=== PATIENT | female | born 1980 | race Two or more races ===

== ENCOUNTER 2024-07-24 09:18 | Emergency (ER) | payer MEDICAID, SELFPAY ==
[2024-07-24 09:34] VITALS: BP 128/83; PULSE 72; RESP 18; TEMP 36.9; O2SAT 100; BMI 18.6
--- NOTE | 2024-07-24 09:34 | EDNOTE_ITS ---
ED Eye Problem RME/HPI General Chief complaint: Eye Problems Stated complaint: Left eye pain X 1 month Time Seen by Provider: 07/24/24 09:24 Source: patient Arrival date/time: 07/24/24 09:18 44-year-old female with no known medical history presents to the emergency room with a chief complaint of left eye irritation x 1 month. Mode of arrival: ambulatory Limitations: no limitations Related Data Home Medications ?Medication ?Instructions ?Recorded ?Confirmed cetirizine 10 mg tablet 100 mg PO DAILY PRN Allergic 11/28/22 11/28/22 Symptoms Previous Rx's ?Medication ?Instructions ?Recorded acetaminophen 300 mg-codeine 30 mg 1 tab PO Q8H PRN pa in #14 tabs 11/29/22 tablet acetaminophen 650 mg 650 mg PO Q12H PRN fever or pain 11/29/22 tablet,extended release #14 tabs cephalexin 500 mg capsule 500 mg PO Q12H #14 caps 11/16 10/08 ibuprofen 800 mg tablet 800 mg PO Q8H PRN pain #20 t abs 11/29/22 metronidazole 500 mg tablet 500 mg PO Q12H #14 tabs Allergies Allergy/AdvReac Type Severity Reaction Status Date / Time No Known Allergies Allergy Verified 11/29/22 06:39 Review of Systems Review of Systems Systems Reviewed: All systems reviewed, normal except as documented Constitutional Constitutional: Reports system reviewed and no additional complaints, except as documented, Denies fatigue, Denies fever(s), Denies headache(s) and Denies weakness Eyes Eyes: Reports system reviewed and no additional complaints, except as documented, Denies blind spots, Denies blurry vision, Denies change in vision, Denies decreased night vision, Denies diplopia, Denies eye discharge, Denies dry eyes, Denies exophthalmos, Denies floaters, Reports irritation, Denies itchy eyes, Denies loss of peripheral vision, Denies loss of vision, Denies other visual disturbances, Denies eye pain, Denies photophobia, Denies requires corrective lenses, Denies seeing flashes, Denies spots in vision and Denies t unnel vision ENT Ears, Nose, Mouth, and Throat: Reports system reviewed and no additional complaints, except as documented, Denies otalgia, Denies headache(s), Denies nasal congestion, Denies throat swelling and Denies vertigo Cardiovascular Cardiovascular: Reports system reviewed and no additional complaints, except as documented, Denies chest pain, Denies dyspnea and Denies dyspnea on exertion Respiratory Respiratory: Reports system reviewed and no additional complaints, except as documented, Denies chest congestion, Denies cough, Denies dyspnea, Denies dyspnea on exertion and Denies wheezing Gastrointestinal Gastrointestinal: Reports system reviewed and no additional complaints, except as documented, Denies abdominal pain, Denies cramping, Denies nausea and Denies vomiting Genitourinary Genitourinary: Reports system reviewed and no additional complaints, except as documented Musculoskeletal Musculoskeletal: Reports system reviewed and no additional complaints, except as documented and Denies back pain Integumentary/Breasts Skin/Breast: Reports system reviewed and no additional complaints, except as documented and Denies wounds Neurologic Neurologic: Reports system reviewed and no additional complaints, except as documented, Denies confusion, Denies headache(s), Denies lack of coordination, Denies loss of vision, Denies vertigo and Denies weakness Psychiatric Psychiatric: Reports system reviewed and no additional complaints, except as documented, Denies anxiety, Denies confusion, Denies depression, Denies paranoia, Denies suicidal ideation and Denies tactile hallucinations Endocrine Endocrine: Reports system reviewed and no additional complaints, except as documented and Denies fatigue Hematologic/Lymphatic Hematologic/Lymphatic: Reports system reviewed and no additional complaints, except as documented and Denies lymphadenopathy Allergic/Immunologic Allergic/Immunologic: Reports system reviewed and no additional complaints, except as documented, Denies itchy eyes, Denies throat swelling, Denies urticaria and Denies wheezing ED Exam General Limitations: Present no limitations General appearance: Present alert and in no apparent distress Head Head exam: Present atraumatic Eye Eye exam: Present normal appearance, PERRL and EOMI; Absent scleral icterus, conjunctival injection, nystagmus, miosis, mydriasis, periorbital swelling or periorbital tenderness Expanded Eye Exam Eyelids: bilateral: normal inspection Pupils: Bilateral: regular, round and reactive ENT ENT exam: Present normal exam, normal oropharynx and mucous membranes moist Neck Neck exam: Present normal inspection, full ROM and trachea midline Chest Chest inspection: Present normal inspection and symmetric chest wall rise Respiratory Respiratory exam: Present normal lung sounds bilaterally Cardiovascular Cardiovascular exam: Present regular rate, normal rhythm and normal heart sounds Abdominal Exam Abdominal exam: Present soft and normal bowel sounds Extremities Exam Extremities exam: Present normal inspection and full ROM Back Exam Back exam: Present normal inspection and full ROM Neurological Exam Neurological exam: Present alert, oriented X3 and CN II-XII intact Psychiatric Psychiatric exam: Present normal affect and normal mood Skin Skin exam: Present warm, dry, intact and normal color Course Quality Measures none Orders Category Date Time Status ED Eye Irrigation ONCE Care 07/24/24 09:34 Completed Visual Acuity X1 Care 07/24/24 09:34 Completed Childress Lamp to Bedside X1 Care 07/24/24 09:34 Completed Fluorescein Sodium [[id number]] Med 07/24/24 09:34 Discontinued 1 mg LEFT EYE X1 ONE TETRACAINE Op Sharona 0.5% [Pontocaine Op Sharona 0.5%] Med 07/24/24 09:34 Discontinued 1 drop LEFT EYE X1 ONE Vital Signs Vital signs: Vital Signs Temperature 98.5 F 07/24/24 09:34 Pulse Rate 72 07/24/24 09:34 Respiratory Rate 18 07/24/24 09:34 Blood Pressure 128/83 07/24/24 09:34 Pulse Oximetry (%) 100 07/24/24 09:34 Oxygen Delivery Method Room Air 07/24/24 09:34 O2 saturation 100% within normal limits Eye MDM Narrative MDM Narrative:: 44-year-old female with no known medical history presents to the emergency room with a chief complaint of left eye irritation x 1 month. Patient is hemodynamically stable and in no apparent distress Physical examination shows pupils are PERRLA EOMs are intact there is no nystagmus or myosis. Patient denies any double vision spots in her vision blurry vision. Patient states she has had left eye irritation x 1 month. A once lamp examination was set up but patient refused stating that she does not believe there is anything in her eye and she just wanted somebody to take a s econd look at it. Patient was discharged and educated to follow-up with her primary care provider and if symptoms continue a referral to an security system sales consultant. Patient data External records reviewed:: [facility] [place] previous records Clinical information provided by:: patient Social determinants that could affect healthcare access:: none Patient has the following chronic illnesses:: No chronic illness How is presenting disease/condition affected by chronic disease/condition?: no chronic disease Evaluation data The following diagnostics were reviewed and interpreted by me:: lab results and radiology exam(s) Lab and/or radiology exams considered but not ordered:: Labs and radiology exams considered and ordered Interpretation Summary: N/A Medications / Prescriptions Medications or Prescriptions considered but not ordered:: No medication given Medication administrations:: Medication Administration History Discontinued Medications Fluorescein Sodium (Fluorescein Sod 1 Mg Strp) 1 mg LEFT EYE X1 ONE Stop: 07/24/24 09:35 Last Admin: 07/24/24 10:03 Dose: 1 mg Documented By: TROY Tetracaine HCl (Tetracaine Pf Op Sharona 0.5% 4 Ml Drpette) 1 drop LEFT EYE X1 ONE Stop: 07/24/24 09:35 Last Admin: 07/24/24 10:03 Dose: 1 drop Documented By: TROY No medication given Consultations Consultation(s) initiated? (list below): No Diagnosis Eye Problem Differential Diagnosis: corneal abrasion, conjunctivitis, acute iritis, corneal ulcer and other (Eye irritation) Most likely diagnosis given after review of the tests above:: Eye irritation Admission Indicated Admission indicated?: not indicated Admission Request Was there a request for admission?: No Disposition Plan Disposition Plan: Discharge Discharge Attestation Discharge Attestation: The patient and all family members were given an opportunity to ask questions and understood the discharge instructions. Discharge instructions specifically effects, indications for sooner follow up or return to the emergency department, and the expected course of current diagnosis. Patient condition: Stable Discharge Plan Plan Patient Disposition: HOME (Self Care) Disposition Comment: Stable Prescriptions/Referrals Prescriptions/Med Rec: No Action cetirizine 10 mg tablet 100 mg PO DAILY PRN (Reason: Allergic Symptoms) acetaminophen 650 mg tablet extended release 650 mg PO Q12H PRN (Reason: fever or pain) Qty: 14 0RF ibuprofen 800 mg tablet 800 mg PO Q8H PRN (Reason: pain) Qty: 20 0RF acetaminophen-codeine 300-30 mg tablet 1 tab PO Q8H PRN (Reason: pain) Qty: 14 0RF metronidazole 500 mg tablet 500 mg PO Q12H Qty: 14 0RF cephalexin 500 mg capsule 500 mg PO Q12H Qty: 14 0RF Problem List Clinical Impression: Eye irritation Patient/Caregiver Discharge Instructions Education Materials: How the Eye Works Additional Instructions: Lennox un seguimiento con day proveedor de atenci?n primaria en las pr?ximas 24 a 4 8 horas. Si fidelia s?ntomas contin?an, necesitar? luzma derivaci?n a un oftalm?logo. Ante cualquier evidencia de empeoramiento de los signos o s?ntomas, regrese a la angeline de emergencias de inmediato. Print Language: British Stand Alone Forms: Mago Award Info., Patient Portal Info Letter PA/ALODIZE MACHINE OPERATOR Supervising Physician PA/ALODIZE MACHINE OPERATOR Supervising Physician: Dr. JADE
[2024-07-24] MEDS: TETRACAINE PF OP SOL 0.5% 4 ML DRPETTE 1 DROP LEFT EYE (10:03)
[2024-07-24] MEDS: FLUORESCEIN SOD 1 MG STRP LEFT EYE (10:03)
== END 2024-07-24 12:00 | disposition home or self-care (01) ==
LOC: SERX 11:31
PROVIDERS: Emergency Provider Emergency Medicine
DX: H57.89 Other specified disorders of eye and adnexa (principal)
CPT/HCPCS: 99283

== ENCOUNTER 2025-04-03 10:29 | Emergency (ER) | payer MEDICAID, SELFPAY ==
[2025-04-03 10:55] VITALS: BP 106/69; PULSE 69; RESP 18; TEMP 37.1; O2SAT 100; BMI 17.2
--- NOTE | 2025-04-03 11:00 | XR_ITS ---
Examination: CT brain head without contrast. 2-D sagittal coronal reconstructions Date and time of exam: April 03, 2025, 1110 hours INDICATIONS: Onset left-sided head pain and left-sided facial numbness beginning today CTDI: vol (mGy): 46.2 DLP: (mGycm): 871 Technique: Multiple CT axial sections of the brain have been obtained, 5 mm slice thickness. Contrast has not been administered. 2-D sagittal, coronal reconstructions have been obtained Low dose protocols were performed. One or more of the following dose reduction techniques were used; automated exposure control, adjustment of the mA and/or KV according to patient size, use of iterative reconstruction technique. Findings: No significant ventricular enlargement. Intra-axial or extra-axial hemorrhage density is not seen. No mass effect or midline shift Basal cisterns are not remarkable. Fourth ventricle is midline. Cranial vault intact. Impression: Negative for acute hemorrhage, mass effect or midline shift Given the patient's presentation, consider brain MRI follow-up without contrast to assess for demyelinating disease, acute ischemic change
--- NOTE | 2025-04-03 11:55 | PD.EDHA ---
ED Headache RME/HPI General Chief Complaint: Neuro Symptoms/Deficit Stated Complaint: Left side of face feels asleep X 1 week Time Seen by Provider: 04/03/25 11:00 Arrival date/time: 04/03/25 10:29 45-year-old female presents to the emergency room today complaints of headache ongoing for more than a year patient ports no fever nausea or vomiting no dizziness or weakness patient reports that she feels like the left side of her face is asleep Limitations: no limitations Related Data Home Medications ?Medication ?Instructions ?Recorded ?Confirmed cetirizine 10 mg tablet 100 mg PO DAILY PRN Allergic 11/28/22 11/28/22 Symptoms Previous Rx's ?Medication ?Instructions ?Recorded acetaminophen 300 mg-codeine 30 mg 1 tab PO Q8H PRN pain #14 tabs 11/29/22 tablet acetaminophen 650 mg 650 mg PO Q12H PRN fever or pain 11/29/22 tablet,extended release #14 tabs cephalexin 500 mg capsule 500 mg PO Q12H #14 caps 11/29/22 ibuprofen 800 mg tablet 800 mg PO Q8H PRN pain #20 tabs 11/29/22 metronidazole 500 mg tablet 500 mg PO Q12H #14 tabs 11/29/22 Allergies Allergy/AdvReac Type Severity Reaction Status Date / Time No Known Allergies Allergy Verified 04/03/25 10:33 Review of Systems Review of Systems Systems Reviewed: All systems reviewed, normal except as documented Constitutional Constitutional: Reports system reviewed and no additional complaints, except as documented, Denies fever(s) and Reports headache(s) Eyes Eyes: Reports system reviewed and no additional complaints, except as documented and Denies blurry vision ENT Ears, Nose, Mouth, and Throat: Reports system reviewed and no additional complaints, except as documented, Reports headache(s), Denies nasal congestion and Denies nasal discharge Cardiovascular Cardiovascular: Reports system reviewed and no additional complaints, except as documented, Denies chest pain and Denies dyspnea Respiratory Respiratory: Reports system reviewed and no additional complaints, except as documented, Denies chest congestion, Denies cough and Denies dyspnea Gastrointestinal Gastrointestinal: Reports system reviewed and no additional complaints, except as documented and Denies abdominal pain Integumentary/Breasts Skin/Breast: Reports system reviewed and no additional complaints, except as documented and Denies rash Neurologic Neurologic: Reports system reviewed and no additional complaints, except as documented, Reports as per HPI and Reports headache(s) Past Medical History Past Medical History NEUROLOGIC: Negative Neurological Disorders or Seizures CARDIAC: Negative Cardiac Disorders or Congestive Heart Failure RESPIRATORY: Negative Chronic Obstructive Pulmonary Disease (COPD) GASTROINTESTINAL: Negative Gastrointestinal Disorders GENITOURINARY: Negative Genitourinary Disorders or Renal Disease MUSCULOSKELETAL: Negative Musculoskeletal Disorders ENDOCRINE: Negative Endocrine Disorders, Diabetes Mellitus Type 1 or Diabetes Mellitus Type 2 HEMATOLOGIC: Negative Blood Disorders OTHER HISTORY: Positive Blood Transfusions (child 2009); Negative Hospitalization, Blood Transfusion Reaction, Anesthesia Reactions, Chemotherapy, Chicken Pox, Measles, Mumps or Cancer Social History SMOKING STATUS: Never smoker ED Exam General Limitations: Present no limitations General appearance: Present alert and in no apparent distress Head Head exam: Present atraumatic Eye Eye exam: Present normal appearance, PERRL and EOMI ENT ENT exam: Present normal exam, normal oropharynx and mucous membranes moist Neck Neck exam: Present normal inspection, full ROM and trachea midline Chest Chest inspection: Present normal inspection and symmetric chest wall rise Respiratory Respiratory exam: Present normal lung sounds bilaterally Cardiovascular Cardiovascular exam: Present regular rate, normal rhythm and normal heart sounds Abdominal Exam Abdominal exam: Present soft and normal bowel sounds Extremities Exam Extremities exam: Present normal inspection and full ROM Back Exam Back exam: Present normal inspection and full ROM Neurological Exam Neurological exam: Present alert, oriented X3, CN II-XII intact, normal gait and reflexes normal; Absent motor sensory deficit Psychiatric Psychiatric exam: Present normal affect and normal mood Skin Skin exam: Present warm, dry, intact and normal color Course Quality Measures none Orders Category Date Time Status CT head/brain wo con Stat Exams 04/03/25 11:00 Completed Vital Signs Vital signs: Vital Signs Temperature 98.7 F 04/03/25 10:55 Pulse Rate 69 04/03/25 10:55 Respiratory Rate 18 04/03/25 10:55 Blood Pressure 106/69 04/03/25 10:55 Pulse Oximetry (%) 100 04/03/25 10:55 Oxygen Delivery Method Room Air 04/03/25 10:55 O2 saturation 100% room air with normal limits Headache MDM Narrative MDM Narrative:: 45-year-old female presents to the emergency room today complaints of headache ongoing for more than a year patient ports no fever nausea or vomiting no dizziness or weakness patient reports that she feels like the left side of her face is asleep On exam patient well-appearing patient does not appear toxic no acute distress Imaging obtained no acute emergent findings noted Patient instructed follow-up with neurology for further evaluation for worsening symptoms or concerns return immediately Patient data External records reviewed:: [facility] previous records Clinical information provided by:: patient Social determinants that could affect healthcare access:: none Patient has the following chronic illnesses:: See history How is presenting disease/condition affected by chronic disease/condition?: caused by Evaluation data The following diagnostics were reviewed and interpreted by me:: radiology exam(s) Lab and/or radiology exams considered but not ordered:: Radiology obtained Interpretation Summary: Reviewed by me Medications / Prescriptions Medications or Prescriptions considered but not ordered:: Given Medication administrations:: Given Consultations Consultation(s) initiated? (list below): No Diagnosis Differential diagnosis headache: migraine, tension headache and subarachnoid hemorrhage Most likely diagnosis given after review of the tests above:: Headache Admission Indicated Admission indicated?: not indicated Admission Request Was there a request for admission?: No Disposition Plan Disposition Plan: Discharge Discharge Attestation Discharge Attestation: The patient and all family members were given an opportunity to ask questions and understood the discharge instructions. Discharge instructions specifically effects, indications for sooner follow up or return to the emergency department, and the expected course of current diagnosis. Patient condition: Stable Discharge Plan Plan Patient Disposition: HOME (Self Care) Discharge Disposition comment: stable Prescriptions/Referrals Prescriptions/Med Rec: No Action cetirizine 10 mg tablet 100 mg PO DAILY PRN (Reason: Allergic Symptoms) acetaminophen 650 mg tablet extended release 650 mg PO Q12H PRN (Reason: fever or pain) Qty: 14 0RF ibuprofen 800 mg tablet 800 mg PO Q8H PRN (Reason: pain) Qty: 20 0RF acetaminophen-codeine 300-30 mg tablet 1 tab PO Q8H PRN (Reason: pain) Qty: 14 0RF metronidazole 500 mg tablet 500 mg PO Q12H Qty: 14 0RF cephalexin 500 mg capsule 500 mg PO Q12H Qty: 14 0RF Referrals: Randy Hanley MD [Primary Care Provider, Family Practice] - 04/06/25 Problem List Clinical Impression: Headache Patient/Caregiver Discharge Instructions Education Materials: Self-Care for Headaches Additional Instructions: Please follow up with your primary care doctor in the next 24-48hrs for any worsening symptoms return here immediately Please follow-up with neurology as discussed Print Language: Tanzanian Stand Alone Forms: Mago Award Info., Patient Portal Info Letter PA/FILM HISTORIAN Supervising Physician PA/FILM HISTORIAN Supervising Physician: dr [email or web address]
== END 2025-04-03 12:32 | disposition home or self-care (01) ==
PROVIDERS: Emergency Provider Nurse Practitioner Primary Care; PCP Family Medicine
DX: R51.9 Headache, unspecified (principal)
CPT/HCPCS: 70450; 99283